=== PATIENT | male | born 1940 | race African-American/Black ===

== ENCOUNTER 2022-08-04 15:20 | Inpatient (IN) | payer OTHER, MEDICAID ==
[~2022-08-04] VITALS: Ht 182.9 cm; Wt 76.2 kg
[2022-08-04] VITALS (9 sets, daily range): BP systolic 126–147; BP diastolic 68–87
[2022-08-04 16:13] LABS: BASOPHILS % 0.3 % (0.0-2.0); HEMOGLOBIN. 18.8 g/dL (14.0-18.0); LYMPHOCYTES % 36.9 % (20.0-50.0); MEAN CORPUSCULAR HEMOGLOBIN 27.8 pg (28.0-32.0); MEAN CORPUSCULAR VOLUME 85.8 fL (80.0-94.0); MEAN PLATELET VOLUME 8.6 fl (7.4-10.4); MONOCYTES % 9.1 % (2.0-8.0); NEUTROPHILS % 52.7 % (40.0-76.0); PLATELET 168 x1000/uL (130-400); RED BLOOD CELL COUNT 6.76 mill/uL (4.7-6.1); RED CELL DISTRIBUTION WIDTH 14.1 % (11.6-14.6)
[2022-08-04 16:19] LABS: CHLORIDE 101 mEq/L (98-107)
[2022-08-04 16:28] LABS: CREATINE KINASE 175 IU/L (39-308)
[2022-08-04] MEDS ORDERED: SODIUM CHLORIDE 0.9% 1,000 ML IV ONE (16:45)
[2022-08-04] MEDS ORDERED: ATORVASTATIN CALCIUM 40MG TABLET PO SCH (17:15)
[2022-08-04] MEDS ORDERED: ASPIRIN 325MG TABLET PO ONE (17:15)
[2022-08-04] MEDS ORDERED: HEPARIN SODIUM 1,000 UNIT/1ML VIAL IV ONE (17:45)
[2022-08-04] MEDS ORDERED: FENTANYL CITRATE/PF 50MCG/ML 2ML VIAL ONE (17:52)
[2022-08-04] MEDS ORDERED: LIDOCAINE HCL/PF 1% 10 MG/ML 5ML VIAL ONE (17:52)
[2022-08-04] MEDS ORDERED: HEPARIN 1000 UNITS/ML 10ML ONE (17:52)
[2022-08-04] MEDS ORDERED: MIDAZOLAM HCL 2 MG/2 ML VIAL ONE (17:52)
[2022-08-04] MEDS ORDERED: IODIXANOL 320MG/ML 100 ML BOTTLE IV ONE ×2 (17:52→18:23)
[2022-08-04] MEDS ORDERED: HEPARIN 5000 UNITS/ML VIAL IV ONE (18:00)
[2022-08-04] MEDS ORDERED: TICAGRELOR 90 MG TABLET PO ONE (18:46)
[2022-08-04] MEDS ORDERED: LISINOPRIL 5MG TABLET PO NR (19:00)
[2022-08-04] MEDS ORDERED: METOPROLOL TARTRATE 25MG TABLET PO NR (19:00)
[2022-08-04] MEDS ORDERED: MORPHINE SULFATE 2 MG/ML CPJ (NOT FOR IM USE) IV PRN (20:45)
[2022-08-04] MEDS: ATORVASTATIN CALCIUM 40MG TABLET PO SCH (21:15)
[2022-08-04 21:40] LABS: BASOPHILS % 0.2 % (0.0-2.0); EOSINOPHILS % 0.4 % (0.0-5.0); HEMOGLOBIN. 18.3 g/dL (14.0-18.0); LYMPHOCYTES % 28.7 % (20.0-50.0); MEAN CORPUSCULAR HEMOGLOBIN 28.1 pg (28.0-32.0); MEAN CORPUSCULAR VOLUME 87.4 fL (80.0-94.0); MEAN PLATELET VOLUME 9.2 fl (7.4-10.4); MONOCYTES % 9.1 % (2.0-8.0); NEUTROPHILS % 61.6 % (40.0-76.0); PLATELET 159 x1000/uL (130-400); RED BLOOD CELL COUNT 6.52 mill/uL (4.7-6.1); RED CELL DISTRIBUTION WIDTH 14.7 % (11.6-14.6)
[2022-08-05] VITALS (25 sets, daily range): BP systolic 94–141; BP diastolic 53–86
[2022-08-05] MEDS ORDERED: BENA40TA91 PO (00:04)
[2022-08-05] MEDS ORDERED: TRIA50CA2 (00:04)
[2022-08-05] MEDS ORDERED: ATOR20TA65 PO (00:04)
[2022-08-05 04:52] LABS: BASOPHILS % 0.3 % (0.0-2.0); EOSINOPHILS % 0.3 % (0.0-5.0); HEMATOCRIT. 55.2 % (42.0-52.0); LYMPHOCYTES % 20.4 % (20.0-50.0); MEAN CORPUSCULAR HEMOGLOBIN 28.2 pg (28.0-32.0); MEAN CORPUSCULAR VOLUME 86.3 fL (80.0-94.0); MEAN PLATELET VOLUME 8.7 fl (7.4-10.4); MONOCYTES % 12.2 % (2.0-8.0); NEUTROPHILS % 66.8 % (40.0-76.0); PLATELET 160 x1000/uL (130-400); RED CELL DISTRIBUTION WIDTH 14.2 % (11.6-14.6)
[2022-08-05 04:55] LABS: CHLORIDE 102 mEq/L (98-107)
[2022-08-05] MEDS ORDERED: GUAIFENESIN 200MG/10ML SUGAR FREE UDC PO PRN (07:00)
[2022-08-05] MEDS ORDERED: ACETAMINOPHEN 325MG TABLET PO PRN (07:00)
[2022-08-05] MEDS ORDERED: ONDANSETRON HCL 4MG/2ML INJ IV PRN (07:00)
[2022-08-05] MEDS ORDERED: ACETAMINOPHEN 650MG/20.3ML UDC GT PRN (07:00)
[2022-08-05] MEDS ORDERED: NALOXONE HCL 0.4MG/ML VIAL IV PRN (07:30)
[2022-08-05] MEDS: CLOPIDOGREL 75MG TABLET PO SCH (08:59)
[2022-08-05] MEDS: ASPIRIN 81MG TABLET PO SCH (09:00)
[2022-08-05] MEDS ORDERED: IPRATROPIUM BROMIDE (0.02%) 0.5MG/2.5ML NEB HHN PRN (09:15)
[2022-08-05 11:53] LABS: CLARITY URINE CLEAR (CLEAR); COLOR URINE YELLOW (YELLOW); KETONES URINE TRACE (NEGATIVE); LEUKOCYTE ESTERASE URINE NEGATIVE (NEGATIVE); NITRITE URINE NEGATIVE (NEGATIVE); OCCULT BLOOD URINE 2+ (NEGATIVE); PROTEIN URINE TRACE (NEGATIVE)
[2022-08-05 12:32] LABS: *AMPHETAMINES SCREEN URINE NEGATIVE (NEGATIVE); *BARBITURATES SCREEN URINE NEGATIVE (NEGATIVE); *BENZODIAZEPINES SCREEN URINE PRESUMTIVE POSITIVE (NEGATIVE); *COCAINE SCREEN URINE NEGATIVE (NEGATIVE); CANNABINOID URINE SCREEN NEGATIVE (NEGATIVE); METHADONE URINE SCREEN NEGATIVE (NEGATIVE); OPIATES URINE SCREEN PRESUMTIVE POSITIVE (NEGATIVE); PHENCYCLIDINE URINE SCREEN NEGATIVE (NEGATIVE)
[2022-08-05] MEDS: ATORVASTATIN CALCIUM 40MG TABLET PO SCH (20:46)
[2022-08-05] MEDS: METOPROLOL TARTRATE 25MG TABLET PO SCH (20:53)
[2022-08-06 00:04] VITALS: BP 124/72
[2022-08-06 06:09] LABS: HEMATOCRIT 51.3 % (42.0-52.0); HEMOGLOBIN 17.1 g/dL (14.0-18.0); MEAN CORPUSCULAR HEMOGLOBIN 28.6 pg (28.0-32.0); MEAN CORPUSCULAR VOLUME 85.8 fL (80.0-94.0); PLATELET 158 x1000/uL (130-400); RED BLOOD CELL COUNT 5.98 mill/uL (4.7-6.1)
[2022-08-06] MEDS: PANTOPRAZOLE 40MG DR TABLET PO SCH (06:58)
[2022-08-06 08:06] VITALS: BP 144/80
[2022-08-06] MEDS: METOPROLOL TARTRATE 25MG TABLET PO SCH ×2 (08:16→21:00)
[2022-08-06] MEDS: ASPIRIN 81MG TABLET PO SCH (08:16)
[2022-08-06] MEDS: CLOPIDOGREL 75MG TABLET PO SCH (08:16)
[2022-08-06 08:55] LABS: T4 FREE 1.12 ng/dL (0.76-1.46)
[2022-08-06 09:00] LABS: CHLORIDE 102 mEq/L (98-107)
[2022-08-06 12:00] VITALS: BP 119/73
[2022-08-06] MEDS: APIXABAN 5 MG TABLET PO SCH ×2 (12:14→17:38)
[2022-08-06] MEDS ORDERED: FUROSEMIDE 20MG/2ML VIAL IVP SCH (13:00)
[2022-08-06] MEDS: LOSARTAN POTASSIUM 25 MG TABLET PO SCH (14:50)
[2022-08-06 16:00] VITALS: BP 109/54
[2022-08-06 20:00] VITALS: BP 98/65
[2022-08-06] MEDS: ATORVASTATIN CALCIUM 40MG TABLET PO SCH (21:20)
[2022-08-07] VITALS: BP 127/81
[2022-08-07 04:00] VITALS: BP 115/76
[2022-08-07] MEDS: PANTOPRAZOLE 40MG DR TABLET PO SCH (06:39)
[2022-08-07] MEDS: APIXABAN 5 MG TABLET PO SCH ×2 (07:35→18:10)
[2022-08-07] MEDS: CLOPIDOGREL 75MG TABLET PO SCH (07:35)
[2022-08-07] MEDS: METOPROLOL TARTRATE 25MG TABLET PO SCH ×2 (07:35→21:00)
[2022-08-07] MEDS: ASPIRIN 81MG TABLET PO SCH (07:35)
[2022-08-07] MEDS: LOSARTAN POTASSIUM 25 MG TABLET PO SCH (07:35)
[2022-08-07 08:07] VITALS: BP 106/69
[2022-08-07] MEDS: FUROSEMIDE 20MG TABLET PO SCH (08:57)
[2022-08-07 11:39] VITALS: BP 112/60
[2022-08-07 16:04] VITALS: BP 116/47
[2022-08-07 16:17] LABS: HEMATOCRIT 52.1 % (42.0-52.0); HEMOGLOBIN 17.2 g/dL (14.0-18.0); MEAN CORPUSCULAR HEMOGLOBIN 28.4 pg (28.0-32.0); MEAN CORPUSCULAR VOLUME 85.8 fL (80.0-94.0); PLATELET 175 x1000/uL (130-400); RED BLOOD CELL COUNT 6.07 mill/uL (4.7-6.1); RED CELL DISTRIBUTION WIDTH 14.2 % (11.6-14.6)
[2022-08-07 16:38] LABS: CHLORIDE 103 mEq/L (98-107)
[2022-08-07 16:41] LABS: PHOSPHORUS 2.3 mg/dL (2.5-4.9)
[2022-08-07 20:00] VITALS: BP 101/66
[2022-08-07] MEDS: ATORVASTATIN CALCIUM 40MG TABLET PO SCH (21:27)
[2022-08-08] VITALS: BP 150/95
[2022-08-08 04:00] VITALS: BP 114/56
[2022-08-08 08:00] VITALS: BP 119/77
[2022-08-08 09:05] LABS: HEMATOCRIT 51.5 % (42.0-52.0); MEAN CORPUSCULAR HEMOGLOBIN 28.3 pg (28.0-32.0); MEAN CORPUSCULAR VOLUME 85.6 fL (80.0-94.0); PLATELET 175 x1000/uL (130-400); RED BLOOD CELL COUNT 6.02 mill/uL (4.7-6.1); RED CELL DISTRIBUTION WIDTH 13.8 % (11.6-14.6)
[2022-08-08 09:28] LABS: CHLORIDE 103 mEq/L (98-107)
[2022-08-08] MEDS: CLOPIDOGREL 75MG TABLET PO SCH (09:32)
[2022-08-08] MEDS: ASPIRIN 81MG TABLET PO SCH (09:32)
[2022-08-08] MEDS: FAMOTIDINE 20MG TABLET PO SCH ×2 (09:32→21:10)
[2022-08-08] MEDS: FUROSEMIDE 20MG TABLET PO SCH (09:32)
[2022-08-08] MEDS: APIXABAN 5 MG TABLET PO SCH ×2 (09:32→18:39)
[2022-08-08 09:33] LABS: PHOSPHORUS 2.2 mg/dL (2.5-4.9)
[2022-08-08] MEDS: METOPROLOL TARTRATE 25MG TABLET PO SCH ×2 (09:33→21:10)
[2022-08-08] MEDS: LOSARTAN POTASSIUM 25 MG TABLET PO SCH (09:33)
[2022-08-08 12:00] VITALS: BP 103/57
[2022-08-08 16:00] VITALS: BP 95/65
[2022-08-08 20:00] VITALS: BP 125/65
[2022-08-08] MEDS: ATORVASTATIN CALCIUM 40MG TABLET PO SCH (21:09)
[2022-08-08] MEDS ORDERED: NON FORMULARY PATIENT HOME MED PO SCH (21:15)
[2022-08-08] MEDS ORDERED: MELATONIN 3MG TABLET PO SCH (21:44)
[2022-08-09] VITALS: BP 94/64
[2022-08-09 04:00] VITALS: BP 100/76
[2022-08-09 06:29] LABS: HEMOGLOBIN 16.2 g/dL (14.0-18.0); MEAN CORPUSCULAR HEMOGLOBIN 28.5 pg (28.0-32.0); MEAN CORPUSCULAR VOLUME 86.3 fL (80.0-94.0); PLATELET 211 x1000/uL (130-400); RED BLOOD CELL COUNT 5.68 mill/uL (4.7-6.1); RED CELL DISTRIBUTION WIDTH 13.8 % (11.6-14.6)
[2022-08-09 06:47] LABS: CHLORIDE 98 mEq/L (98-107)
[2022-08-09 07:02] LABS: PHOSPHORUS 2.6 mg/dL (2.5-4.9)
[2022-08-09 08:00] VITALS: BP 105/68
[2022-08-09] MEDS: METOPROLOL TARTRATE 25MG TABLET PO SCH (08:25)
[2022-08-09] MEDS: CLOPIDOGREL 75MG TABLET PO SCH (08:25)
[2022-08-09] MEDS: APIXABAN 5 MG TABLET PO SCH ×2 (08:25→17:08)
[2022-08-09] MEDS: ASPIRIN 81MG TABLET PO SCH (08:25)
[2022-08-09] MEDS: FAMOTIDINE 20MG TABLET PO SCH (08:25)
[2022-08-09] MEDS: FUROSEMIDE 20MG TABLET PO SCH (08:27)
[2022-08-09] MEDS: LOSARTAN POTASSIUM 25 MG TABLET PO SCH (08:31)
[2022-08-09 11:44] VITALS: BP 113/73
[2022-08-09] MEDS ORDERED: LOSA25TA3 PO (14:17)
[2022-08-09] MEDS ORDERED: CLOP75TA15 PO (14:17)
[2022-08-09] MEDS ORDERED: METO25TA6 PO (14:17)
[2022-08-09] MEDS ORDERED: APIX5TAB PO (14:17)
[2022-08-09] MEDS ORDERED: LIP40 PO (14:17)
[2022-08-09 15:36] VITALS: BP 113/73
[2022-08-09 15:59] VITALS: BP 120/80
== END 2022-08-09 17:17 | disposition home or self-care (01) | DRG 246 ==
LOC: ER 15:20 → CVICU 18:11 → 3WST 08-05 12:55
PROVIDERS: ADMIT Internal Medicine; ATTEND Internal Medicine
PROC: 027035Z Dilation of Coronary Artery, One Artery with Two Drug-eluting Intraluminal Devices, Percutaneous Approach (ICD-10-PCS; principal; 2022-08-04)
DX: I21.09 ST elevation (STEMI) myocardial infarction involving other coronary artery of anterior wall (principal); I50.21 Acute systolic (congestive) heart failure; I82.90 Acute embolism and thrombosis of unspecified vein; I25.10 Atherosclerotic heart disease of native coronary artery without angina pectoris; E78.5 Hyperlipidemia, unspecified; E86.0 Dehydration; R62.7 Adult failure to thrive; F17.200 Nicotine dependence, unspecified, uncomplicated; I25.5 Ischemic cardiomyopathy; J44.9 Chronic obstructive pulmonary disease, unspecified; I11.0 Hypertensive heart disease with heart failure; Z20.822 Contact with and (suspected) exposure to COVID-19; Z68.22 Body mass index [BMI] 22.0-22.9, adult; Z85.118 Personal history of other malignant neoplasm of bronchus and lung; Z79.02 Long term (current) use of antithrombotics/antiplatelets; Z79.82 Long term (current) use of aspirin; Z79.899 Other long term (current) drug therapy; Z92.21 Personal history of antineoplastic chemotherapy; Z92.3 Personal history of irradiation
CPT/HCPCS: 36415; 71045; 80048; 80053; 80061; 80305; 81003; 82550; 83735; 84100; 84145; 84439; 84443; 84484; 85025; 85027; 85347; 87426; 92610; 92941; 93005; 93306; 93458; 93970; 97162; 97166; 97535; 99285; C1725; C1760; C1769; C1874 ×2; C1887; C1893; C9803; J1644; J1940; J2250; J2270; J3010; J3490; J7030; Q9967; J8499

== ENCOUNTER 2023-06-29 12:54 | Inpatient (IN) | payer OTHER, MEDICAID, MEDICARE ==
[~2023-06-29] VITALS: Ht 182.9 cm; Wt 69.6 kg
[~2023-06-29 12:54] MED LIST: APIX5TAB PO; ATOR20TA65 PO; BENA40TA91 PO; CLOP75TA15 PO; LIP40 PO; LOSA-412 PO; METO25TA6 PO; TRIA50CA2
[2023-06-29 13:02] VITALS: O2SAT 97
[2023-06-29 13:56] LABS: ALANINE AMINOTRANSFERASE 8 IU/L (10-49); ALBUMIN 3.9 g/dL (3.2-4.8); ASPARTATE AMINOTRANSFERASE 14 IU/L (<34); BILIRUBIN TOTAL 0.4 mg/dL (0.1-1.0); CALCIUM 9.3 mg/dL (8.7-10.4); CARBON DIOXIDE 24 mEq/L (21-32); CHLORIDE 104 mEq/L (98-107); CREATININE 1.6 mg/dL (0.6-1.3); GLUCOSE 177 mg/dL (70-105); PROTEIN TOTAL 8.5 g/dL (6.0-8.3); SODIUM 138 mEq/L (136-145); TROPONIN I HIGH SENSITIVITY 20 ng/L (3.0-53); UREA NITROGEN BLOOD 43 mg/dL (9-23)
[2023-06-29 14:00] LABS: HEMOGLOBIN. 13.2 g/dL (14.0-18.0); MEAN CORPUSCULAR HGB CONC 31.3 g/dL (31.0-37.0); MEAN CORPUSCULAR VOLUME 86.3 fL (80.0-94.0); MEAN PLATELET VOLUME 8.2 fl (7.4-10.4); PLATELET 215 x1000/uL (130-400); RED BLOOD CELL COUNT 4.87 mill/uL (4.7-6.1); RED CELL DISTRIBUTION WIDTH 15.2 % (11.6-14.6); WHITE BLOOD COUNT 7.4 x1000/uL (4.5-11.0)
[2023-06-29 14:06] LABS: INR 1.1; PROTHROMBIN TIME 11.7 sec (9.6-11.0)
[2023-06-29 14:34] LABS: DIFFERENTIAL COMMENT 1
[2023-06-29 14:36] LABS: PLATELET ESTIMATE NORMAL
[2023-06-29 17:04] LABS: TROPONIN I HIGH SENSITIVITY 23 ng/L (3.0-53)
[2023-06-29] MEDS ORDERED: CLONIDINE 0.1MG TABLET PO PRN (19:15)
[2023-06-29] MEDS ORDERED: ONDANSETRON HCL 4MG/2ML INJ IV PRN (19:15)
[2023-06-29] MEDS ORDERED: IPRATROPIUM/ALBUTEROL 0.5-3(2.5)MG/3ML NEB HHN PRN (19:15)
[2023-06-29] MEDS ORDERED: ACETAMINOPHEN 325MG TABLET PO PRN (19:15)
[2023-06-29 22:35] VITALS: BP 109/61; PULSE 107; RESP 19; TEMP 97
[2023-06-30] VITALS: BP 96/52; PULSE 80; RESP 17; TEMP 97.7
[2023-06-30 00:16] LABS: TROPONIN I HIGH SENSITIVITY 27 ng/L (3.0-53)
[2023-06-30 04:00] VITALS: BP 91/44; PULSE 91; RESP 17; TEMP 97.7
[2023-06-30 06:16] LABS: BASOPHILS % 0.3 % (0.0-2.0); EOSINOPHILS % 2.9 % (0.0-5.0); HEMATOCRIT. 41.2 % (42.0-52.0); HEMOGLOBIN. 13.3 g/dL (14.0-18.0); LYMPHOCYTES % 30.4 % (20.0-50.0); MEAN CORPUSCULAR HEMOGLOBIN 27.4 pg (28.0-32.0); MEAN CORPUSCULAR HGB CONC 32.2 g/dL (31.0-37.0); MEAN PLATELET VOLUME 8.5 fl (7.4-10.4); MONOCYTES % 8.2 % (2.0-8.0); NEUTROPHILS % 58.2 % (40.0-76.0); PLATELET 198 x1000/uL (130-400); RED BLOOD CELL COUNT 4.85 mill/uL (4.7-6.1); RED CELL DISTRIBUTION WIDTH 14.8 % (11.6-14.6); WHITE BLOOD COUNT 7.5 x1000/uL (4.5-11.0)
[2023-06-30 06:51] LABS: ALANINE AMINOTRANSFERASE < 7 IU/L (10-49); ASPARTATE AMINOTRANSFERASE 16 IU/L (<34); BILIRUBIN TOTAL 0.4 mg/dL (0.1-1.0); CALCIUM 9.7 mg/dL (8.7-10.4); CARBON DIOXIDE 21 mEq/L (21-32); CHLORIDE 102 mEq/L (98-107); CREATININE 1.3 mg/dL (0.6-1.3); GLUCOSE 81 mg/dL (70-105); POTASSIUM 4.7 mEq/L (3.5-5.1); PROTEIN TOTAL 7.7 g/dL (6.0-8.3); SODIUM 138 mEq/L (136-145); TROPONIN I HIGH SENSITIVITY 27 ng/L (3.0-53); UREA NITROGEN BLOOD 32 mg/dL (9-23)
[2023-06-30 08:00] VITALS: BP 90/45; PULSE 51; RESP 14; TEMP 96.2
[2023-06-30 12:00] VITALS: BP 103/58; PULSE 84; RESP 18; TEMP 96.1
[2023-06-30] MEDS ORDERED: CEFTRIAXONE 1GM PREMIX 50 ML IV SCH (12:15)
[2023-06-30] MEDS: AZITHROMYCIN 250 MG TABLET PO SCH (13:14)
[2023-06-30] MEDS: CEFTRIAXONE 1,000 MG in DEXTROSE 5% WATER 50 ML IV SCH (15:32)
[2023-06-30 16:00] VITALS: BP 90/53; PULSE 91; RESP 18; TEMP 96.3
[2023-06-30] MEDS: ASPIRIN 81MG TABLET PO SCH (16:42)
[2023-06-30] MEDS: BLOOD SUGAR DIAGNOSTIC STRIP TEST SCH (20:41)
[2023-06-30] MEDS: INSULIN LISPRO 100 UNITS/ML SUBCUT SCH (20:42)
[2023-06-30] MEDS ORDERED: DEXTROSE 50% WATER 50ML SYRINGE IV PRN (20:45)
[2023-06-30] MEDS: ATORVASTATIN CALCIUM 40MG TABLET PO SCH (21:08)
[2023-07-01 00:33] VITALS: BP 149/74; PULSE 107; RESP 19; TEMP 98.4
[2023-07-01 04:00] VITALS: BP 112/60; PULSE 60; RESP 18; TEMP 97.7
[2023-07-01] MEDS: BLOOD SUGAR DIAGNOSTIC STRIP TEST SCH ×4 (07:31→20:38)
[2023-07-01] MEDS: INSULIN LISPRO 100 UNITS/ML SUBCUT SCH ×4 (07:32→20:39)
[2023-07-01 08:00] VITALS: BP 105/49; PULSE 95; RESP 18; TEMP 97.1
[2023-07-01] MEDS: CLOPIDOGREL 75MG TABLET PO SCH (08:32)
[2023-07-01] MEDS: ASPIRIN 81MG TABLET PO SCH (08:32)
[2023-07-01] MEDS: AZITHROMYCIN 250 MG TABLET PO SCH (08:32)
[2023-07-01 12:00] VITALS: BP 113/61; PULSE 89; RESP 18; TEMP 96.6
[2023-07-01] MEDS: CEFTRIAXONE 1,000 MG in DEXTROSE 5% WATER 50 ML IV SCH (13:40)
[2023-07-01 16:00] VITALS: BP 95/48; PULSE 86; RESP 18; TEMP 97.1
[2023-07-01 20:00] VITALS: BP 106/55; PULSE 96; RESP 20; TEMP 98.2
[2023-07-01] MEDS: ATORVASTATIN CALCIUM 40MG TABLET PO SCH (20:40)
[2023-07-01 23:37] LABS: *AMPHETAMINES SCREEN URINE NEGATIVE (NEGATIVE); *BARBITURATES SCREEN URINE NEGATIVE (NEGATIVE); *BENZODIAZEPINES SCREEN URINE NEGATIVE (NEGATIVE); *COCAINE SCREEN URINE NEGATIVE (NEGATIVE); ECSTASY MDMA SCREEN URINE NEGATIVE (NEGATIVE); METHADONE URINE SCREEN Neg (NEGATIVE); OPIATES URINE SCREEN NEGATIVE (NEGATIVE); PHENCYCLIDINE URINE SCREEN NEGATIVE (NEGATIVE)
[2023-07-02] VITALS: BP 109/70; RESP 18; TEMP 98.2
[2023-07-02] MEDS: INSULIN LISPRO 100 UNITS/ML SUBCUT SCH ×4 (06:33→21:00)
[2023-07-02] MEDS: BLOOD SUGAR DIAGNOSTIC STRIP TEST SCH ×4 (06:33→21:03)
[2023-07-02 08:00] VITALS: BP 104/59; PULSE 62; RESP 19; TEMP 97.2
[2023-07-02 08:01] LABS: BASOPHILS % 0.3 % (0.0-2.0); EOSINOPHILS % 1.6 % (0.0-5.0); HEMATOCRIT. 42.8 % (42.0-52.0); HEMOGLOBIN. 13.5 g/dL (14.0-18.0); LYMPHOCYTES % 26.2 % (20.0-50.0); MEAN CORPUSCULAR HEMOGLOBIN 27.2 pg (28.0-32.0); MEAN CORPUSCULAR HGB CONC 31.5 g/dL (31.0-37.0); MEAN CORPUSCULAR VOLUME 86.4 fL (80.0-94.0); MEAN PLATELET VOLUME 8.6 fl (7.4-10.4); MONOCYTES % 8.3 % (2.0-8.0); NEUTROPHILS % 63.6 % (40.0-76.0); PLATELET 194 x1000/uL (130-400); RED BLOOD CELL COUNT 4.95 mill/uL (4.7-6.1); RED CELL DISTRIBUTION WIDTH 15.4 % (11.6-14.6); WHITE BLOOD COUNT 8.7 x1000/uL (4.5-11.0)
[2023-07-02] MEDS: ASPIRIN 81MG TABLET PO SCH (08:23)
[2023-07-02] MEDS: AZITHROMYCIN 250 MG TABLET PO SCH (08:23)
[2023-07-02] MEDS: CLOPIDOGREL 75MG TABLET PO SCH (08:24)
[2023-07-02 08:29] LABS: CALCIUM 9.8 mg/dL (8.7-10.4); CARBON DIOXIDE 22 mEq/L (21-32); CHLORIDE 106 mEq/L (98-107); CREATININE 1.1 mg/dL (0.6-1.3); GLUCOSE 90 mg/dL (70-105); POTASSIUM 4.7 mEq/L (3.5-5.1); SODIUM 138 mEq/L (136-145); UREA NITROGEN BLOOD 23 mg/dL (9-23)
[2023-07-02] MEDS ORDERED: LIDOCAINE HCL 1% 20ML VIAL (Pyxis) INJ ONE (09:17)
[2023-07-02] MEDS ORDERED: MIDAZOLAM HCL 2 MG/2 ML VIAL ONE (09:17)
[2023-07-02] MEDS ORDERED: VERAPAMIL HCL 2.5 MG/1 ML 2ML VIAL IV ONE (09:17)
[2023-07-02] MEDS ORDERED: FENTANYL CITRATE/PF 50MCG/ML 2ML VIAL ONE (09:17)
[2023-07-02] MEDS ORDERED: HEPARIN 1000 UNITS/ML 10ML ONE (09:17)
[2023-07-02] MEDS ORDERED: IODIXANOL 320MG/ML 100 ML BOTTLE IV ONE (09:18)
[2023-07-02] MEDS ORDERED: DIPHENHYDRAMINE 50MG/ML VIAL ONE (09:22)
[2023-07-02] MEDS ORDERED: ATROPINE SULFATE 1MG/10ML SYR ONE (10:14)
[2023-07-02] MEDS ORDERED: AMIODARONE HCL 50MG/ML 3ML VIAL IV ONE (10:14)
[2023-07-02] MEDS ORDERED: ONDANSETRON HCL 4MG/2ML INJ ONE (10:47)
[2023-07-02] MEDS ORDERED: SODIUM CHLORIDE 0.45% 500 ML IV SCH (11:30)
[2023-07-02] MEDS ORDERED: ACETAMINOPHEN 325MG TABLET PO PRN (11:30)
[2023-07-02] MEDS ORDERED: ATROPINE SULFATE 1MG/10ML SYR IV PRN (11:30)
[2023-07-02] MEDS ORDERED: SODIUM CHLORIDE 0.45% 500 ML IV ONE (11:45)
[2023-07-02 14:00] VITALS: BP 109/66; PULSE 75; RESP 18; TEMP 98
[2023-07-02] MEDS: CEFTRIAXONE 1,000 MG in DEXTROSE 5% WATER 50 ML IV SCH (14:29)
[2023-07-02 16:00] VITALS: BP 101/58; PULSE 91; RESP 18; TEMP 97.6
[2023-07-02 20:00] VITALS: BP 105/53; PULSE 96; RESP 16; TEMP 97.9
[2023-07-02] MEDS: ATORVASTATIN CALCIUM 40MG TABLET PO SCH (21:00)
[2023-07-03] VITALS: BP 113/56; PULSE 98; RESP 17; TEMP 97.3
[2023-07-03 04:00] VITALS: BP 97/54; PULSE 107; RESP 17; TEMP 97.3
[2023-07-03] MEDS: BLOOD SUGAR DIAGNOSTIC STRIP TEST SCH ×4 (06:06→21:33)
[2023-07-03] MEDS: INSULIN LISPRO 100 UNITS/ML SUBCUT SCH ×4 (07:12→21:00)
[2023-07-03 07:50] LABS: BASOPHILS % 0.4 % (0.0-2.0); EOSINOPHILS % 1.9 % (0.0-5.0); HEMOGLOBIN. 12.7 g/dL (14.0-18.0); LYMPHOCYTES % 32.4 % (20.0-50.0); MEAN CORPUSCULAR HEMOGLOBIN 27.4 pg (28.0-32.0); MEAN CORPUSCULAR HGB CONC 32.7 g/dL (31.0-37.0); MEAN CORPUSCULAR VOLUME 83.8 fL (80.0-94.0); MEAN PLATELET VOLUME 8.9 fl (7.4-10.4); MONOCYTES % 9.3 % (2.0-8.0); PLATELET 187 x1000/uL (130-400); RED BLOOD CELL COUNT 4.65 mill/uL (4.7-6.1); WHITE BLOOD COUNT 8.3 x1000/uL (4.5-11.0)
[2023-07-03 08:00] VITALS: BP 111/56; PULSE 106; RESP 20; TEMP 97.8
[2023-07-03 08:03] LABS: CALCIUM 9.4 mg/dL (8.7-10.4); CARBON DIOXIDE 27 mEq/L (21-32); CHLORIDE 102 mEq/L (98-107); GLUCOSE 89 mg/dL (70-105); POTASSIUM 4.2 mEq/L (3.5-5.1); SODIUM 136 mEq/L (136-145); UREA NITROGEN BLOOD 22 mg/dL (9-23)
[2023-07-03] MEDS: CLOPIDOGREL 75MG TABLET PO SCH ×2 (09:00→11:07)
[2023-07-03] MEDS: ASPIRIN 81MG TABLET PO SCH ×2 (09:00→11:07)
[2023-07-03] MEDS ORDERED: VERAPAMIL HCL 2.5 MG/1 ML 2ML VIAL IV ONE (10:34)
[2023-07-03] MEDS ORDERED: IODIXANOL 320MG/ML 100 ML BOTTLE IV ONE ×2 (10:34→12:01)
[2023-07-03] MEDS ORDERED: FENTANYL CITRATE/PF 50MCG/ML 2ML VIAL ONE (10:34)
[2023-07-03] MEDS ORDERED: MIDAZOLAM HCL 2 MG/2 ML VIAL ONE ×2 (10:35→11:41)
[2023-07-03] MEDS ORDERED: HEPARIN 1000 UNITS/ML 10ML ONE (10:35)
[2023-07-03] MEDS ORDERED: LIDOCAINE HCL 1% 20ML VIAL (Pyxis) INJ ONE (10:47)
[2023-07-03] MEDS ORDERED: DIPHENHYDRAMINE 50MG/ML VIAL ONE (11:23)
[2023-07-03] MEDS ORDERED: CLOPIDOGREL 75MG TABLET ONE (12:51)
[2023-07-03] MEDS ORDERED: ACETAMINOPHEN 325MG TABLET PO PRN (13:00)
[2023-07-03] MEDS ORDERED: ATROPINE SULFATE 1MG/10ML SYR IV PRN (13:00)
[2023-07-03] MEDS ORDERED: SODIUM CHLORIDE 0.45% 500 ML IV SCH (13:00)
[2023-07-03 16:00] VITALS: BP 130/70; PULSE 106; RESP 20; TEMP 97.8
[2023-07-03 18:45] VITALS: BP 111/56; PULSE 106; RESP 20; TEMP 97.8
[2023-07-03 20:00] VITALS: BP 137/81; PULSE 97; RESP 21; TEMP 98.1
[2023-07-03] MEDS: ATORVASTATIN CALCIUM 40MG TABLET PO SCH (21:32)
[2023-07-04] VITALS: BP 151/91; PULSE 100; RESP 18; TEMP 98.4
[2023-07-04 04:00] VITALS: BP 107/70; PULSE 101; RESP 17; TEMP 98.6
[2023-07-04] MEDS: BLOOD SUGAR DIAGNOSTIC STRIP TEST SCH ×4 (06:26→20:53)
[2023-07-04 06:56] LABS: BASOPHILS % 0.2 % (0.0-2.0); EOSINOPHILS % 1.2 % (0.0-5.0); HEMATOCRIT. 39.4 % (42.0-52.0); HEMOGLOBIN. 12.7 g/dL (14.0-18.0); LYMPHOCYTES % 27.6 % (20.0-50.0); MEAN CORPUSCULAR HEMOGLOBIN 27.2 pg (28.0-32.0); MEAN CORPUSCULAR HGB CONC 32.2 g/dL (31.0-37.0); MEAN CORPUSCULAR VOLUME 84.3 fL (80.0-94.0); MEAN PLATELET VOLUME 8.8 fl (7.4-10.4); MONOCYTES % 7.2 % (2.0-8.0); NEUTROPHILS % 63.8 % (40.0-76.0); PLATELET 203 x1000/uL (130-400); RED BLOOD CELL COUNT 4.67 mill/uL (4.7-6.1); WHITE BLOOD COUNT 7.7 x1000/uL (4.5-11.0)
[2023-07-04] MEDS: INSULIN LISPRO 100 UNITS/ML SUBCUT SCH ×4 (07:20→20:56)
[2023-07-04 07:47] LABS: CALCIUM 9.3 mg/dL (8.7-10.4); CARBON DIOXIDE 22 mEq/L (21-32); CHLORIDE 102 mEq/L (98-107); CREATININE 0.8 mg/dL (0.6-1.3); GLUCOSE 87 mg/dL (70-105); POTASSIUM 3.8 mEq/L (3.5-5.1); SODIUM 135 mEq/L (136-145); UREA NITROGEN BLOOD 17 mg/dL (9-23)
[2023-07-04 08:00] VITALS: BP 107/70; PULSE 101; RESP 17; TEMP 98.6
[2023-07-04] MEDS: ASPIRIN 81MG TABLET PO SCH (09:02)
[2023-07-04] MEDS: CLOPIDOGREL 75MG TABLET PO SCH (09:02)
[2023-07-04] MEDS: METOPROLOL SUCCINATE 50MG ER TABLET PO SCH (11:00)
[2023-07-04 12:00] VITALS: BP 107/70; PULSE 93; RESP 17; TEMP 98.6
[2023-07-04] MEDS ORDERED: METO-385 PO (12:31)
[2023-07-04] MEDS ORDERED: ASPI-1160 PO (12:31)
[2023-07-04] MEDS ORDERED: CLOP-31 PO (12:31)
[2023-07-04 16:00] VITALS: BP 110/70; PULSE 93; RESP 17; TEMP 98.6
[2023-07-04] MEDS ORDERED: LOPERAMIDE HCL 2MG CAPSULE PO PRN (19:30)
[2023-07-04 20:00] VITALS: BP 115/69; PULSE 66; RESP 17; TEMP 98.2
[2023-07-04] MEDS: ATORVASTATIN CALCIUM 40MG TABLET PO SCH (20:53)
[2023-07-05] VITALS: BP 99/63; PULSE 90; RESP 22; TEMP 98.6
[2023-07-05 04:00] VITALS: BP 108/61; PULSE 75; RESP 21; TEMP 98.7
[2023-07-05] MEDS: BLOOD SUGAR DIAGNOSTIC STRIP TEST SCH ×4 (06:50→21:00)
[2023-07-05] MEDS: INSULIN LISPRO 100 UNITS/ML SUBCUT SCH ×4 (07:20→21:00)
[2023-07-05 08:00] VITALS: BP 107/72; PULSE 77; RESP 13; TEMP 97.9
[2023-07-05] MEDS: CLOPIDOGREL 75MG TABLET PO SCH (08:38)
[2023-07-05] MEDS: ASPIRIN 81MG TABLET PO SCH (08:38)
[2023-07-05] MEDS: METOPROLOL SUCCINATE 50MG ER TABLET PO SCH (08:44)
[2023-07-05 12:00] VITALS: BP 108/61; PULSE 77; RESP 20; TEMP 97.9
[2023-07-05 16:00] VITALS: BP 89/54; PULSE 93; RESP 24; TEMP 97.6
[2023-07-05 20:15] VITALS: BP 93/59; PULSE 87; RESP 24; TEMP 98.2
[2023-07-05] MEDS: ATORVASTATIN CALCIUM 40MG TABLET PO SCH (22:37)
[2023-07-06 00:15] VITALS: BP 95/52; PULSE 84; RESP 17; TEMP 98.4
[2023-07-06 04:00] VITALS: BP 97/60; PULSE 86; RESP 15; TEMP 98.2
[2023-07-06] MEDS: BLOOD SUGAR DIAGNOSTIC STRIP TEST SCH ×4 (05:52→21:53)
[2023-07-06] MEDS: INSULIN LISPRO 100 UNITS/ML SUBCUT SCH ×4 (07:20→21:54)
[2023-07-06 07:44] VITALS: BP 96/64; PULSE 90; RESP 18; TEMP 98.6
[2023-07-06] MEDS: ASPIRIN 81MG TABLET PO SCH (07:46)
[2023-07-06] MEDS: METOPROLOL SUCCINATE 50MG ER TABLET PO SCH (07:46)
[2023-07-06] MEDS: CLOPIDOGREL 75MG TABLET PO SCH (07:46)
[2023-07-06 12:00] VITALS: BP 95/52; PULSE 77; RESP 20; TEMP 98.4
[2023-07-06 16:15] VITALS: BP 113/63; PULSE 88; RESP 20; TEMP 98.1
[2023-07-06 20:00] VITALS: BP 96/63; PULSE 85; RESP 23; TEMP 99
[2023-07-06] MEDS: ATORVASTATIN CALCIUM 40MG TABLET PO SCH (21:50)
[2023-07-07] VITALS: BP 109/69; PULSE 81; RESP 20; TEMP 98.1
[2023-07-07] MEDS: DIPHENHYDRAMINE 50MG/ML VIAL IV PRN ×2 (00:25→20:40)
[2023-07-07 04:00] VITALS: BP 95/74; PULSE 98; RESP 18; TEMP 97.9
[2023-07-07] MEDS: BLOOD SUGAR DIAGNOSTIC STRIP TEST SCH ×4 (06:34→20:36)
[2023-07-07] MEDS: INSULIN LISPRO 100 UNITS/ML SUBCUT SCH ×4 (06:34→20:36)
[2023-07-07 08:00] VITALS: BP 100/66; PULSE 73; RESP 16; TEMP 98.1
[2023-07-07] MEDS: METOPROLOL SUCCINATE 50MG ER TABLET PO SCH (08:32)
[2023-07-07] MEDS: CLOPIDOGREL 75MG TABLET PO SCH (08:32)
[2023-07-07] MEDS: ASPIRIN 81MG TABLET PO SCH (08:33)
[2023-07-07 12:00] VITALS: BP 127/64; PULSE 73; RESP 18; TEMP 97.9
[2023-07-07 16:00] VITALS: BP 116/51; PULSE 58; RESP 16; TEMP 98.3
[2023-07-07 20:00] VITALS: BP 104/52; PULSE 77; RESP 23; TEMP 98.7
[2023-07-07] MEDS: ATORVASTATIN CALCIUM 40MG TABLET PO SCH (20:30)
[2023-07-08] VITALS: BP 104/52; PULSE 81; RESP 22; TEMP 98.6
[2023-07-08 04:00] VITALS: BP 104/64; PULSE 90; RESP 18; TEMP 97.9
[2023-07-08] MEDS: BLOOD SUGAR DIAGNOSTIC STRIP TEST SCH ×4 (06:08→21:01)
[2023-07-08] MEDS: INSULIN LISPRO 100 UNITS/ML SUBCUT SCH ×4 (06:56→21:00)
[2023-07-08 08:00] VITALS: BP 121/59; PULSE 85; RESP 21; TEMP 98.2
[2023-07-08] MEDS: ASPIRIN 81MG TABLET PO SCH (08:46)
[2023-07-08] MEDS: METOPROLOL SUCCINATE 50MG ER TABLET PO SCH (08:47)
[2023-07-08] MEDS: CLOPIDOGREL 75MG TABLET PO SCH (08:47)
[2023-07-08 12:00] VITALS: BP 107/46; PULSE 54; RESP 20; TEMP 97.9
[2023-07-08 16:00] VITALS: BP 94/48; PULSE 70; RESP 26; TEMP 98.8
[2023-07-08 20:00] VITALS: BP 110/53; PULSE 100; RESP 23; TEMP 98.8
[2023-07-08] MEDS: ATORVASTATIN CALCIUM 40MG TABLET PO SCH (21:01)
[2023-07-09] VITALS: BP 120/70; PULSE 66; RESP 16; TEMP 98.5
[2023-07-09 04:00] VITALS: BP 129/98; PULSE 87; RESP 18; TEMP 98.6
[2023-07-09] MEDS: BLOOD SUGAR DIAGNOSTIC STRIP TEST SCH (06:05)
[2023-07-09 08:00] VITALS: BP 114/73; PULSE 77; RESP 20; TEMP 97.9
[2023-07-09] MEDS: ASPIRIN 81MG TABLET PO SCH (08:43)
[2023-07-09] MEDS: CLOPIDOGREL 75MG TABLET PO SCH (08:44)
[2023-07-09] MEDS: METOPROLOL SUCCINATE 50MG ER TABLET PO SCH (08:44)
[2023-07-09 12:00] VITALS: BP 92/64; PULSE 95; RESP 18; TEMP 98.6
[2023-07-09 16:14] VITALS: BP 105/63; PULSE 81; RESP 20; TEMP 97.8
[2023-07-09 20:00] VITALS: BP 112/51; PULSE 65; RESP 19; TEMP 97.9
[2023-07-09] MEDS: ATORVASTATIN CALCIUM 40MG TABLET PO SCH (20:20)
[2023-07-09] MEDS: DIPHENHYDRAMINE 50MG/ML VIAL IV PRN (20:33)
[2023-07-10] VITALS: BP 97/67; PULSE 78; RESP 16; TEMP 98.5
[2023-07-10 04:00] VITALS: BP 100/62; PULSE 79; RESP 18; TEMP 98.2
[2023-07-10 08:00] VITALS: BP 105/63; PULSE 81; RESP 20; TEMP 97.8
[2023-07-10] MEDS: ASPIRIN 81MG TABLET PO SCH (08:19)
[2023-07-10] MEDS: CLOPIDOGREL 75MG TABLET PO SCH (08:19)
[2023-07-10] MEDS: METOPROLOL SUCCINATE 50MG ER TABLET PO SCH (08:19)
[2023-07-10 12:00] VITALS: BP 108/63; PULSE 79; RESP 20; TEMP 97.8
[2023-07-10 16:00] VITALS: BP 110/63; PULSE 79; RESP 20; TEMP 97.8
[2023-07-10 20:05] VITALS: BP 96/59; PULSE 90; RESP 23; TEMP 98.2
[2023-07-10] MEDS: ATORVASTATIN CALCIUM 40MG TABLET PO SCH (21:56)
[2023-07-11 00:05] VITALS: BP 109/69; PULSE 66; RESP 20; TEMP 98.3
[2023-07-11 04:05] VITALS: BP 151/81; PULSE 79; RESP 22; TEMP 97.7
[2023-07-11 08:00] VITALS: BP 96/59; PULSE 90; RESP 23; TEMP 98.2
[2023-07-11] MEDS: CLOPIDOGREL 75MG TABLET PO SCH (08:34)
[2023-07-11] MEDS: ASPIRIN 81MG TABLET PO SCH (08:34)
[2023-07-11] MEDS: METOPROLOL SUCCINATE 50MG ER TABLET PO SCH (08:35)
[2023-07-11 12:00] VITALS: BP 109/69; PULSE 66; RESP 20; TEMP 98.3
[2023-07-11 16:00] VITALS: BP 96/59; PULSE 56; RESP 20; TEMP 99
[2023-07-11 20:15] VITALS: BP 114/71; PULSE 66; RESP 18; TEMP 98.4
[2023-07-11] MEDS ORDERED: MELATONIN 3MG TABLET PO SCH (21:00)
[2023-07-11] MEDS ORDERED: NON FORMULARY PATIENT HOME MED PO SCH (21:00)
[2023-07-11] MEDS: ATORVASTATIN CALCIUM 40MG TABLET PO SCH (22:11)
[2023-07-12 00:15] VITALS: BP 100/65; PULSE 74; RESP 14; TEMP 99.2
[2023-07-12 04:15] VITALS: BP 96/72; PULSE 79; RESP 20; TEMP 98.8
[2023-07-12 08:00] VITALS: BP 104/47; PULSE 60; RESP 22; TEMP 98.7
[2023-07-12] MEDS: METOPROLOL SUCCINATE 50MG ER TABLET PO SCH (09:00)
[2023-07-12] MEDS: ASPIRIN 81MG TABLET PO SCH (10:47)
[2023-07-12] MEDS: CLOPIDOGREL 75MG TABLET PO SCH (10:47)
[2023-07-12 12:00] VITALS: BP 106/48; PULSE 61; RESP 22; TEMP 99
[2023-07-12 16:00] VITALS: BP 120/51; PULSE 95; RESP 23; TEMP 98.1
[2023-07-12 17:46] VITALS: BP 151/51; PULSE 71; TEMP 98.7
== END 2023-07-12 20:00 | DRG 321 ==
LOC: ER 13:27 → 8WST 18:08 → 3WST 07-03 16:24
PROVIDERS: ADMIT Internal Medicine; ATTEND Internal Medicine
PROC: 4A023N7 Measurement of Cardiac Sampling and Pressure, Left Heart, Percutaneous Approach (ICD-10-PCS; 2023-07-02)
PROC: B211YZZ Fluoroscopy of Multiple Coronary Arteries using Other Contrast (ICD-10-PCS; 2023-07-02)
PROC: B310YZZ Fluoroscopy of Thoracic Aorta using Other Contrast (ICD-10-PCS; 2023-07-02)
PROC: 5A0935A Assistance with Respiratory Ventilation, Less than 24 Consecutive Hours, High Flow/Velocity Cannula (ICD-10-PCS; 2023-07-02)
PROC: 027035Z Dilation of Coronary Artery, One Artery with Two Drug-eluting Intraluminal Devices, Percutaneous Approach (ICD-10-PCS; principal; 2023-07-03)
PROC: B41FYZZ Fluoroscopy of Right Lower Extremity Arteries using Other Contrast (ICD-10-PCS; 2023-07-03)
DX: I25.110 Atherosclerotic heart disease of native coronary artery with unstable angina pectoris (principal); J18.9 Pneumonia, unspecified organism; I50.40 Unspecified combined systolic (congestive) and diastolic (congestive) heart failure; I25.5 Ischemic cardiomyopathy; I11.0 Hypertensive heart disease with heart failure; D64.9 Anemia, unspecified; Z79.02 Long term (current) use of antithrombotics/antiplatelets; I25.2 Old myocardial infarction; Z95.5 Presence of coronary angioplasty implant and graft; Z79.82 Long term (current) use of aspirin; Z79.899 Other long term (current) drug therapy
CPT/HCPCS: 36415; 71045; 80048; 80053; 80305; 82962; 83036; 83880; 84145; 84484; 85025; 85347; 87426; 92928; 93005; 93306; 93454; 93458; 93571; 93970; 97110; 97162; 97166; 97535; 99285; C1726; C1769; C1874; C1887; C1893; J0282; J0461; J0696; J1200; J1644; J2250; J2405; J3010; J3490; J7060; Q9967